=== PATIENT | female | born 1980 | race African-American/Black ===

== ENCOUNTER 2018-10-25 16:54 | Emergency (ER) | payer BC ==
[2018-10-25 17:03] VITALS: BP 137/88; PULSE 76; TEMP 98.2; BMI 35.3
[2018-10-25] MEDS ORDERED: ACETAMINOPHEN 500 MG TABLET (FP) PO ONE (17:34)
[2018-10-25] MEDS ORDERED: ACETAMINOPHEN 325 MG TABLET (FP) ONE (17:49)
--- NOTE | 2018-10-25 18:12 | PDOC ---
Documentation entered by Cesar Chester SCRIBE, acting as scribe for Jennifer Doshi DO. Jennifer Doshi DO: This documentation has been prepared by the Nemo ng Matthew, SCRIBE, under my direction and personally reviewed by me in its entirety. I confirm that the documentation accurately reflects all work, treatment, procedures, and medical decision making performed by me. Attending Attestation - Resident Resident Name: Tessa Miner - ED Attending Attestation I have performed the following: I have examined & evaluated the patient, The case was reviewed & discussed with the resident, I agree w/resident's findings & plan, Exceptions are as noted - HPI HPI: 10/25/18 18:12 Patient is a 37 year old female with a significant past medical history of HTN, who presents to the ED with complaints of syncope that occurred just prior to ED arrival. Patient reports being at work this evening when he received the news that her aunt just , followed by her experiencing a syncopal episode. She reports being unaware how long she was unconscious but does state she was told she hit the left side of her head on the floor. Patient reports experiencing left sided head pain but denies any numbness or tingling. She reports having similar syncopal experience 2 years ago when she had a panic attack. Denies chest pain, sob. Denies nausea, vomiting. Denies contact with sick individuals, out of state travelling. Denies fevers, chills. Denies diarrhea, constipation. Denies dysuria, hematuria. Denies any other symptoms. Allergies: None Social history: No smoking. No alcohol. No illicit drugs. Surgical history: None PMD: None - Physicial Exam PE: 10/25/18 18:12 Constitutional: +Tearful Awake, alert, oriented. No acute distress. Head: +No hematomas Normocephalic. Atraumatic Eyes: PERRL. EOMI. Conjunctivae are not pale. ENT: Mucous membranes are moist and intact. Posterior pharynx without exudate or erythema. Uvula midline. Neck: Supple. Full ROM. No lymphadenopathy. Cardiovascular: Regular rate. Regular rhythm. S1, S2 regular. Distal pulses are 2+ and symmetric. Pulmonary/Chest: No evidence of respiratory distress. Clear to auscultation bilaterally No wheezing, rales or rhonchi. Abdominal: Soft and nondistended. There is no tenderness. No rebound, guarding or rigidity. No organomegaly. No palpable masses. Good bowel sounds. Back: No CVA tenderness. Musculoskeletal: No edema. No cyanosis. No clubbing. Full range of motion in all extremities. No Calf tenderness. Radial/pedal pulses are intact and 2+ bilaterally Skin: Skin is warm and dry. No petechiae. No purpura. Neurological: Alert and oriented to person, place, and time. Cranial nerves II -XII are grossly intact. Normal speech. Strength is grossly symmetric. No sensory deficits. Psychiatric: Good eye contact. Normal interaction, affect and behavior. - Medical Decision Making 10/25/18 18:08 I, Dr. Jennifer Doshi, DO, attest that this document has been prepared under my direction and personally reviewed by me in its entirety. I further attest, that it accurately reflects all work, treatment, procedures and medical decision -making performed by me. 10/25/18 18:08 a/p: 37yo female with hx of HTN presents for eval of passing out at work -pt was at work when she was told her aunt today. -family at the bedside all in tears, pt in tears -pt states hx of syncope in the past secondary to panic attacks -denies all complaints prior to hearing the news about her aunt -denies all complaints other than slight lopez and feeling sad since the syncopal episode -no blood thinners or antiplts -pt stats her coworkers told her she fell and hit the L side of her head - pt c/ o slight headache, but does not have hematoma/abrasion to her head/scalp -pt denies cp/sob, no n/v/d, no dysuria -pt neuro intact at this time -will monitor and repeat neuro exam -glucose 70- will give food -pt neuro intact, suspect syncope secondary to stress reaction from hearing the bad news 10/25/18 19:03 pt feels better ambulatory in the ED with a steady gait tolerated po intake requesting to go home neuro intact family at the bedside stable for dc to home Heart Score/ECG Review - ECG Intrepretation Comment:: 10/25/18 18:12 sinus at 74, nl axis, nl interval, no acute st/t wave findings
--- NOTE | 2018-10-25 18:23 | PDOC ---
History of Present Illness - General Chief Complaint: Syncope/Near Syncope Stated Complaint: SYNCOPE Time Seen by Provider: 10/25/18 17:06 History Source: Patient, Family Exam Limitations: No Limitations - History of Present Illness Initial Comments: 10/25/18 18:17 Pt is a 37yo F with PMH of HTN presenting to ED s/p witnessed syncopal episode around 1 hour baffle mounter. Per family, pt was at work and heard that her aunt . Pt passed out and hit her head on the L side. Pt's only complaint is a slight headache on the L side of her head. Denies chest pain, back pain, numbness/ tingling, sob, cough, recent illnesses, abdominal pain, n/v/d. Pt passed out years ago after having a panic attack. Stated she was feeling fine earlier today , has been eating and drinking well and taking her medications. PMD: PMH: htn PSH: none Meds: 3 anithypertensive meds Allergies: nkda Past History - Past Medical History Allergies/Adverse Reactions: Allergies Allergy/AdvReac Type Severity Reaction Status Date / Time No Known Allergies Allergy Verified 10/25/18 17:03 COPD: No HTN: Yes - Suicide/Smoking/Psychosocial Hx Smoking History: Never smoked Have you smoked in the past 12 months: No Information on smoking cessation initiated: No Hx Alcohol Use: No Drug/Substance Use Hx: No Review of Systems - Review of Systems Constitutional: No: Chills, Fever, Weakness HEENTM: No: Symptoms Reported Respiratory: No: Cough, Shortness of Breath Cardiac (ROS): Yes: Syncope. No: Chest Pain, Irregular Heart Rate, Lightheadedness, Palpitations ABD/GI: No: Constipated, Diarrhea, Nausea, Rectal Bleeding, Vomiting, Abdominal cramping : No: Burning, Dysuria, Flank Pain Musculoskeletal: No: Back Pain, Joint Pain, Neck Pain Integumentary: No: Symptoms Reported Neurological: Yes: Headache. No: Numbness, Tingling, Tremors, Weakness *Physical Exam - Vital Signs Last Vital Signs Temp Pulse Resp BP Pulse Ox 98.2 F 76 18 137/88 100 10/25/18 17:01 10/25/18 17:01 10/25/18 17:01 10/25/18 17:01 10/25/18 17:01 - Physical Exam General Appearance: Yes: Nourished, Appropriately Dressed, Other (tearful) HEENT: positive: EOMI, COURTNEY, Other (conjunctival injection from crying. normal scalp; no hematoma or lacerations) Neck: positive: Trachea midline, Supple. negative: Lymphadenopathy (R), Lymphadenopathy (L) Respiratory/Chest: positive: Lungs Clear, Normal Breath Sounds Cardiovascular: positive: Regular Rhythm, Regular Rate, S1, S2. negative: Edema , JVD, Murmur Vascular Pulses: Carotid (R): 2+, Carotid (L): 2+, Dorsalis-Pedis (R): 2+, Doralis-Pedis (L): 2+ Gastrointestinal/Abdominal: positive: Normal Bowel Sounds, Soft. negative: Tender Musculoskeletal: negative: CVA Tenderness Extremity: positive: Normal Capillary Refill. negative: Pedal Edema, Swelling Integumentary: positive: Normal Color, Dry, Warm Neurologic: positive: primary counselor II-XII NML intact, Fully Oriented, Alert, Normal Mood/ Affect, Normal Response, Motor Strength 10/29 ED Treatment Course - ADDITIONAL ORDERS Additional order review: Laboratory Results 10/25/18 17:52 POC Glucometer 70 10/25/18 17:52 POC Glucometer 70 - Medications Given in the ED: ED Medications Discontinued Medications Generic Name Dose Route Start Last Admin Trade Name Anita PRN Reason Stop Dose Admin Acetaminophen 975 mg 10/25/18 17:34 10/25/18 17:53 Tylenol - PO 10/25/18 17:35 975 mg ONCE ONE Administration Medical Decision Making - Medical Decision Making 10/25/18 18:20 Pt is a 37yo F with PMH of HTN presenting to ED s/p witnessed syncopal episode around 1 hour baffle mounter. Per family, pt was at work and heard that her aunt . Pt passed out and hit her head on the L side. Pt's only complaint is a slight headache on the L side of her head. Denies chest pain, back pain, numbness/ tingling, sob, cough, recent illnesses, abdominal pain, n/v/d. Pt passed out years ago after having a panic attack. Stated she was feeling fine earlier today , has been eating and drinking well and taking her medications. Vitals: wnl PE: tearful, no external signs of trauma, lungs cta, normal heart sounds ddx includes but not limited to acute stress reaction, vasovagal syncope, arrhythmia, mi, cva/tia, pe, dissection, dehydration most likely stress reaction given timing of events and pt having prior history of stress induced syncope -BGM -EKG EKG shows nsr at 74 MA 180, QTc 439. T wave flattening I. TWI V1, V2 BGM 70s. pt tolerating po intake, will give food tray. most likely stress reaction. pt does not need further labs at this time. will monitor here in ED. 10/25/18 19:11 Pt ate and is ambulatory. Expressing desire to go home. No dizziness or lightheadedness. Pt safe for dc home. given return precautions and dc instructions. pt agrees with plan *DC/Admit/Observation/Transfer Diagnosis at time of Disposition: Stress reaction - Discharge Dispostion Disposition: HOME Condition at time of disposition: Good Decision to Admit order: No - Referrals Referrals: ON STAFF,NOT [Primary Care Provider] - - Patient Instructions Printed Discharge Instructions: DI for Syncope in Adults (Fainting) Additional Instructions: You were seen in the emergency room today after fainting. This is most likely due to a stress reaction. Please keep yourself well hydrated and rest. Come back to the emergency room if you faint again, have chest pain, feel short of breath or if any new concerning symptom develops. Thank you - Post Discharge Activity
--- NOTE | 2018-10-26 13:40 | EKG ---
Test Reason : Blood Pressure : / mmHG Vent. Rate : 074 BPM Atrial Rate : 074 BPM P-R Int : 180 ms QRS Dur : 080 ms QT Int : 414 ms P-R-T Axes : 069 049 036 degrees QTc Int : 459 ms NORMAL SINUS RHYTHM POSSIBLE LEFT ATRIAL ENLARGEMENT NONSPECIFIC T WAVE ABNORMALITY ABNORMAL ECG NO PREVIOUS ECGS AVAILABLE Confirmed by RE BARON MD ([id number]) on 10/26/2018 1:40:14 PM Referred By: Confirmed By:RE BARON MD
== END 2018-10-25 19:10 | disposition home or self-care (01) ==
LOC: JER 16:54
DX: F43.9 Reaction to severe stress, unspecified (principal); I10 Essential (primary) hypertension
CPT/HCPCS: 82962; 93005; 93010; 99282-25